=== PATIENT | male | born 1990 | race Caucasian/White ===

== ENCOUNTER 2017-08-04 19:50 | Emergency (ER) | payer OTHER ==
[~2017-08-04] VITALS: Ht 175.3 cm; Wt 80.0 kg
[2017-08-04 20:27] VITALS: BP 135/69; PULSE 58; RESP 18; TEMP 98.4; O2SAT 100
--- NOTE | 2017-08-04 21:44 | PD ---
HPI Chief Complaint: Exposure to Blood/Body Fluids Time Seen by Provider: 21:39 Travel History International Travel<30 days: No Contact w/Intl Traveler<30days: No Traveled to known affect area: No History of Present Illness HPI 26-year-old male with no significant medical history presents emergency department for evaluation following an exposure to blood. Patient was working at [employer] when a coworkers blood got onto his right arm. The coworker is hep C and hep B positive per the patient. Patient is up-to-date on his tetanus vaccination and hepatitis series. His skin is intact. He does have a superficial scratch on the right posterior forearm that is scabbed and nearly healed. Denies any immunocompromise state. Has no other symptoms to report. [facility] Past Medical History Depression: Yes Diminished Hearing: No Tetanus Vaccination: < 5 Years Influenza Vaccination: Yes Past Surgical History Surgical History: No Previous Surgery Social History Alcohol Use: Yes (occasionally) Tobacco Use: No Substance Use: No Allergies-Medications (Allergen,Severity, Reaction): Coded Allergies: No Known Allergies (Unverified , 08/04/17) Review of Systems Except as stated in HPI: all other systems reviewed are Neg Physical Exam Narrative GENERAL: Well-nourished, well-developed male patient, ambulatory no acute distress. SKIN: Focused skin assessment warm/dry. HEAD: Normocephalic. EYES: No scleral icterus. No injection or drainage. NECK: Supple, trachea midline. No JVD or lymphadenopathy. CARDIOVASCULAR: Regular rate and rhythm without murmurs, gallops, or rubs. RESPIRATORY: Breath sounds equal bilaterally. No accessory muscle use. MUSCULOSKELETAL: No cyanosis, or edema. BACK: Nontender without obvious deformity. No CVA tenderness. Data Data Last Documented VS Vital Signs Date Time Temp Pulse Resp B/P (MAP) Pulse Ox O2 Delivery O2 Flow Rate FiO2 08/04/17 20:27 98.4 58 18 135/69 (91) 100 Orders Orders Ed Discharge Order (08/04/17 21:46) [facility] Medical Decision Making Medical Screen Exam Complete: Yes Emergency Medical Condition: Yes Medical Record Reviewed: Yes Differential Diagnosis Exposure high risk versus low risk versus normal examination Narrative Course 26-year-old male presents emergency department for evaluation after blood from a hep C and hep B positive colleague got into his right forearm. Patient appears well and without distress. He has no immunocompromise state. Unfortunately the patient has not brought with him an incident report from [facility]. I have offered reassurance that he is up-to-date on his hepatitis B series. Postexposure prophylaxis is not recommended as p patient's skin is intact. I have explained to him that there is no post exposure for hepatitis C. Patient is instructed to follow-up at [facility] tomorrow with his incident report.. He agrees to this plan. He agrees to return immediately with any acute worsening symptoms. Diagnosis Primary Impression: Exposure to blood or body fluid Referrals: [facility] call for appointment Additional Instructions: Call [facility] for an appointment to follow-up Return immediately to the emergency department with any acute worsening symptoms Med/Other Pt SpecificInfo: No Change to Meds Disposition: 01 DISCHARGE HOME Condition: Stable Modesta Simon Aug 04, 2017 21:44
== END 2017-08-04 22:28 | disposition home or self-care (01) ==
LOC: NEPD 19:50
DX: Z77.21 Contact with and (suspected) exposure to potentially hazardous body fluids (principal); F32.9 Major depressive disorder, single episode, unspecified
CPT/HCPCS: 99281